=== PATIENT | male | born 1935 | race Caucasian/White ===

== ENCOUNTER 2023-02-26 08:12 | Emergency (ER) | payer OTHER ==
[~2023-02-26] VITALS: Ht 165.1 cm; Wt 88.9 kg
[~2023-02-26 08:12] MED LIST: FURO20 PO; Flonase 0.05% N16 GM; Furosemide20 MG PO; GABA100; GLIP2.5ER PO; Glucophage1000 MG PO; Glucotrol5 MG PO; Klor-Con M1010 MEQ PO; LOSA25 PO; METF500C PO; METO25ER PO; Neurontin300 MG PO; POTCHL10ER PO; ROPI.25 PO; SIMV5; Simvastatin20 MG PO; TRAM50; TRAM50 PO; TRAZ50 PO; Vitamin B-121000 MCG; WARF3 PO; WARF6 PO; Zocor20 MG PO
[2023-02-26 09:44] VITALS: BP 149/67
[2023-02-26 09:51] LABS: BASOPHILS ABSOLUTE AUTO 0.04 K/mm3 (0.00-0.23); BASOPHILS PERCENT AUTO 1 % (0-2); EOSINOPHILS ABSOLUTE AUTO 0.06 K/mm3 (0.00-0.68); EOSINOPHILS PERCENT AUTO 1 % (0-6); IMMATURE GRAN ABSOLUTE AUTO 0.05 K/mm3 (0.00-0.10); IMMATURE GRAN PERCENT AUTO 1 % (0-1); LYMPHOCYTES ABSOLUTE AUTO 1.07 K/mm3 (0.84-5.20); LYMPHOCYTES PERCENT AUTO 15 % (21-46); MONOCYTES ABSOLUTE AUTO 0.44 K/mm3 (0.16-1.47); MONOCYTES PERCENT AUTO 6 % (4-13); Mean Corpuscular HGB 29.2 pg (26.0-34.0); Mean Corpuscular HGB Conc 32.4 g/dL (31.5-36.5); Mean Corpuscular Volume 90 fL (80-100); Mean Platelet Volume 11.4 fL (9.1-12.4); NEUTROPHILS ABSOLUTE AUTO 5.61 K/mm3 (1.96-9.15); NEUTROPHILS PERCENT AUTO 77 % (41-73); Platelet Count 156 K/mm3 (150-400); RDW Standard Deviation 49.7 fL (35.1-46.3); Red Blood Cell Count 4.11 M/mm3 (4.30-5.90); White Blood Cell Count 7.27 K/mm3 (4.00-11.30)
[2023-02-26 10:05] LABS: International Normalized Ratio 2.21; Prothrombin Time Results 22.2 Sec (9.7-11.5)
[2023-02-26 10:14] LABS: Alanine Aminotransfer (ALT/SGP 34 U/L (12-78); Albumin, Blood 3.6 g/dL (3.4-5.0); Albumin/Globulin Ratio 1.1 (0.8-1.8); Alk Phos 77 U/L (50-136); Anion Gap 6 mmol/L (6-16); Aspartate Aminotrans (AST/SGOT 25 U/L (12-37); Bilirubin, Total 0.9 mg/dL (0.1-1.0); Blood Urea Nitrogen 17 mg/dL (8-24); Bun/Creatinine Ratio 12.9 (12.0-20.0); CHOL/HDL RATIO 2.5; CO2, Blood 23 mmol/L (21-32); Chloride, Blood 111 mmol/L (98-108); Cholesterol 135 mg/dL (50-200); Creatinine, Blood 1.32 mg/dL (0.60-1.20); Globulin, Blood 3.3 g/dL (2.2-4.0); Glomerular Filtration Rate 53 (60-); Glucose, Blood 120 mg/dL (70-99); HDL Cholesterol 55 mg/dL (>39); LDL/HDL RATIO 1.2; Low Density Lipoprotein Chol 65 mg/dL (0-110); Potassium, Blood 4.6 mmol/L (3.5-5.5); Sodium, Blood 140 mmol/L (136-145); Total Protein, Blood 6.9 g/dL (6.4-8.2); Triglycerides 76 mg/dL (30-160); Very Low Density Lipoprot Chol 15 mg/dL (6-32)
[2023-02-26] MEDS ORDERED: FURO40 PO (12:43)
[2023-02-26] MEDS ORDERED: LACT10SY PO (12:43)
[2023-02-26 13:25] LABS: Bun/Creatinine Ratio 11.9 (12.0-20.0); Calcium, Blood 9.2 mg/dL (8.5-10.1); Creatinine, Blood 1.34 mg/dL (0.60-1.20); Potassium, Blood 4.5 mmol/L (3.5-5.5)
== END 2023-02-26 12:59 | disposition home or self-care (01) ==
LOC: ER 08:12
PROVIDERS: Family Medicine
DX: I50.9 Heart failure, unspecified (principal); K59.00 Constipation, unspecified; I48.91 Unspecified atrial fibrillation; I25.10 Atherosclerotic heart disease of native coronary artery without angina pectoris; G47.33 Obstructive sleep apnea (adult) (pediatric); E11.9 Type 2 diabetes mellitus without complications; Z79.01 Long term (current) use of anticoagulants; Z79.84 Long term (current) use of oral hypoglycemic drugs; Z79.51 Long term (current) use of inhaled steroids; Z79.899 Other long term (current) drug therapy; Z95.1 Presence of aortocoronary bypass graft
CPT/HCPCS: 71046; 74177; 80048; 80053; 80061; 83880; 84484; 85025; 85610; 93005; 93010; 96374; 99284-25; A9270; J1940; Q9967

== ENCOUNTER 2023-03-10 10:15 | Emergency (ER) | payer OTHER ==
[~2023-03-10] VITALS: Ht 165.1 cm; Wt 90.7 kg
[~2023-03-10 10:15] MED LIST changes: +FURO40 PO; +LACT10SY PO
[2023-03-10 10:46] LABS: BASOPHILS ABSOLUTE AUTO 0.04 K/mm3 (0.00-0.23); BASOPHILS PERCENT AUTO 1 % (0-2); EOSINOPHILS ABSOLUTE AUTO 0.08 K/mm3 (0.00-0.68); EOSINOPHILS PERCENT AUTO 1 % (0-6); Hematocrit 38.7 % (37.0-53.0); Hemoglobin 12.4 g/dL (13.5-17.5); IMMATURE GRAN ABSOLUTE AUTO 0.04 K/mm3 (0.00-0.10); IMMATURE GRAN PERCENT AUTO 1 % (0-1); LYMPHOCYTES ABSOLUTE AUTO 1.39 K/mm3 (0.84-5.20); LYMPHOCYTES PERCENT AUTO 18 % (21-46); MONOCYTES ABSOLUTE AUTO 0.48 K/mm3 (0.16-1.47); MONOCYTES PERCENT AUTO 6 % (4-13); Mean Corpuscular HGB 28.6 pg (26.0-34.0); Mean Corpuscular Volume 89 fL (80-100); Mean Platelet Volume 11.3 fL (9.1-12.4); NEUTROPHILS ABSOLUTE AUTO 5.79 K/mm3 (1.96-9.15); NEUTROPHILS PERCENT AUTO 74 % (41-73); Platelet Count 151 K/mm3 (150-400); RDW Coefficient Variation 15.5 % (11.7-14.2); RDW Standard Deviation 51.2 fL (35.1-46.3); Red Blood Cell Count 4.33 M/mm3 (4.30-5.90); White Blood Cell Count 7.82 K/mm3 (4.00-11.30)
[2023-03-10 11:07] LABS: Albumin, Blood 3.9 g/dL (3.4-5.0); Albumin/Globulin Ratio 1.1 (0.8-1.8); Bun/Creatinine Ratio 19.7 (12.0-20.0); Calcium, Blood 9.2 mg/dL (8.5-10.1); Creatinine, Blood 1.37 mg/dL (0.60-1.20); Globulin, Blood 3.6 g/dL (2.2-4.0); Potassium, Blood 4.1 mmol/L (3.5-5.5); Total Protein, Blood 7.5 g/dL (6.4-8.2)
[2023-03-10 11:18] LABS: International Normalized Ratio 1.19; Prothrombin Time Results 12.4 Sec (9.7-11.5)
[2023-03-10 12:30] VITALS: BP 137/76
[2023-03-10] MEDS ORDERED: Dulcolax5 MG PO (12:37)
[2023-03-10] MEDS ORDERED: LEVO-T50 MC1 PO (12:37)
== END 2023-03-10 12:53 | disposition home or self-care (01) ==
LOC: ER 10:15
PROVIDERS: Physician Assistant
DX: K59.00 Constipation, unspecified (principal); E03.9 Hypothyroidism, unspecified; R94.6 Abnormal results of thyroid function studies; I50.9 Heart failure, unspecified; E11.9 Type 2 diabetes mellitus without complications; G47.30 Sleep apnea, unspecified; Z95.2 Presence of prosthetic heart valve; Z79.84 Long term (current) use of oral hypoglycemic drugs; Z79.01 Long term (current) use of anticoagulants; Z79.51 Long term (current) use of inhaled steroids; Z79.899 Other long term (current) drug therapy
CPT/HCPCS: 71046; 74019; 80053; 83690; 83880; 84443; 84484; 85025; 85610; 93005; 93010; 99284-25; A9270

== ENCOUNTER 2023-04-08 23:07 | Inpatient (IN) | payer OTHER ==
[~2023-04-08] VITALS: Ht 165.1 cm; Wt 94.3 kg
[~2023-04-08 23:07] MED LIST changes: +Dulcolax5 MG PO; +GLUCOPHAGE1000 M1 PO; -Glucophage1000 MG PO; +LEVO-T50 MC1 PO; -ROPI.25 PO; +ROPI1 PO; +WARF1 PO; -WARF3 PO
[2023-04-08 23:28] LABS: BASOPHILS ABSOLUTE AUTO 0.03 K/mm3 (0.00-0.23); BASOPHILS PERCENT AUTO 0 % (0-2); EOSINOPHILS ABSOLUTE AUTO 0.07 K/mm3 (0.00-0.68); EOSINOPHILS PERCENT AUTO 1 % (0-6); Hematocrit 37.7 % (37.0-53.0); IMMATURE GRAN ABSOLUTE AUTO 0.05 K/mm3 (0.00-0.10); IMMATURE GRAN PERCENT AUTO 1 % (0-1); LYMPHOCYTES ABSOLUTE AUTO 1.08 K/mm3 (0.84-5.20); LYMPHOCYTES PERCENT AUTO 16 % (21-46); MONOCYTES ABSOLUTE AUTO 0.62 K/mm3 (0.16-1.47); MONOCYTES PERCENT AUTO 9 % (4-13); Mean Corpuscular HGB Conc 31.8 g/dL (31.5-36.5); Mean Corpuscular Volume 88 fL (80-100); Mean Platelet Volume 11.2 fL (9.1-12.4); NEUTROPHILS ABSOLUTE AUTO 4.91 K/mm3 (1.96-9.15); NEUTROPHILS PERCENT AUTO 73 % (41-73); Platelet Count 155 K/mm3 (150-400); RDW Coefficient Variation 16.7 % (11.7-14.2); RDW Standard Deviation 53.5 fL (35.1-46.3); Red Blood Cell Count 4.28 M/mm3 (4.30-5.90); White Blood Cell Count 6.76 K/mm3 (4.00-11.30)
[2023-04-08 23:35] LABS: Base Excess Venous 0.3 mmol/L; Bicarbonate Venous 24.4 mmol/L (24.0-30.0); PCO2 Venous 41.3 mmHg (38-42); pH Blood Venous 7.39 (7.34-7.37)
[2023-04-09 00:03] LABS: Albumin, Blood 3.7 g/dL (3.4-5.0); Bilirubin, Total 0.7 mg/dL (0.1-1.0); Bun/Creatinine Ratio 21.7 (12.0-20.0); Creatinine, Blood 1.61 mg/dL (0.60-1.20); Globulin, Blood 3.6 g/dL (2.2-4.0); Potassium, Blood 4.6 mmol/L (3.5-5.5); Total Protein, Blood 7.3 g/dL (6.4-8.2)
[2023-04-09 00:35] LABS: Influenza A, PCR NEGATIVE (NEGATIVE); Influenza B, PCR NEGATIVE (NEGATIVE); Resp Syncytial Virus, PCR NEGATIVE (NEGATIVE); SARS-Cov-2 (COVID-19) PCR, MMC NEGATIVE (NEGATIVE)
[2023-04-09 00:43] LABS: International Normalized Ratio 1.25
[2023-04-09 02:51] VITALS: BP 132/60
[2023-04-09 05:03] LABS: Hematocrit 34.4 % (37.0-53.0)
[2023-04-09 05:40] LABS: Thyroid Stimulating Hormone 3.31 uIU/mL (0.360-4.800)
[2023-04-09 05:41] LABS: Bun/Creatinine Ratio 20.9 (12.0-20.0); Calcium, Blood 8.6 mg/dL (8.5-10.1); Creatinine, Blood 1.63 mg/dL (0.60-1.20); Potassium, Blood 3.8 mmol/L (3.5-5.5)
--- NOTE | 2023-04-09 07:10 | NUR ---
PT ARRIVED A/O AND CABRERA STATES HE IS FINE BUT OBVIOUSLY HAVING A HARD TIME BREATHING. LASIX GIVEN IN ER. ADMISSION DONE, O2 MONITOR ATTACHED PT O2 HAS SIGNIFICANT FLUCUATION BUT VERY EASILY REBOUNDS TO WNL. NO C/O PAIN NO DISTRESS. SITTING UP DRINKING COFFEE NOW.
[2023-04-09 07:38] VITALS: BP 95/63
[2023-04-09 14:29] LABS: International Normalized Ratio 1.28; Prothrombin Time Results 13.3 Sec (9.7-11.5)
[2023-04-09 15:32] VITALS: BP 117/75
--- NOTE | 2023-04-09 18:00 | NUR ---
SHIFT SUMMARY PATIENT ALERT AND INTERACTIVE. PATIENT STATING BREATHING MUCH BETTER THIS EVENING. HOME MEDICATION LIST UPDATED AND CORRECTED. MULTIPLE CHANGES MADE. PATIENT INDEPENDENT IN THE ROOM. LOWER LEG EDEMA NOTED. GABINO HOSE APPLIED TO LOWER EXTREMETIES. EDUCATION PROVIDED TO PATIENT AND FAMILY RELATED TO CARDIAC DIET, FLUID RETENTION, AND MEDICATIONS. REINFORCED WITH PATIENT THE IMPORTANCE OF WEARING CPAP WHEN SLEEPING. REPORTED FROM FAMILY PATIENT DOES NOT READ OR WRITE. DOES THE COOKING AND SON PREPARES MEDS IN A MEDIPLANNER. PATIENT DOES NOT ALWAYS TAKE MEDICATIONS FROM MEDIPLANNER BECAUSE OF FORGETFULNESS.
[2023-04-09] MEDS ORDERED: VITAMIN D325 MC3 PO (18:30)
[2023-04-09] MEDS ORDERED: Lisinopril2.5 MG PO (18:32)
[2023-04-09] MEDS ORDERED: FARXIGA5 MG PO (18:33)
[2023-04-09] MEDS ORDERED: ALDACTONE25 MG PO (18:33)
[2023-04-09 20:39] VITALS: BP 139/63
[2023-04-10 02:26] VITALS: BP 128/71
[2023-04-10 05:44] LABS: BASOPHILS ABSOLUTE AUTO 0.03 K/mm3 (0.00-0.23); BASOPHILS PERCENT AUTO 0 % (0-2); EOSINOPHILS ABSOLUTE AUTO 0.07 K/mm3 (0.00-0.68); EOSINOPHILS PERCENT AUTO 1 % (0-6); Hematocrit 36.2 % (37.0-53.0); Hemoglobin 11.8 g/dL (13.5-17.5); IMMATURE GRAN ABSOLUTE AUTO 0.05 K/mm3 (0.00-0.10); IMMATURE GRAN PERCENT AUTO 1 % (0-1); LYMPHOCYTES ABSOLUTE AUTO 1.18 K/mm3 (0.84-5.20); LYMPHOCYTES PERCENT AUTO 17 % (21-46); MONOCYTES ABSOLUTE AUTO 0.55 K/mm3 (0.16-1.47); MONOCYTES PERCENT AUTO 8 % (4-13); Mean Corpuscular HGB 27.8 pg (26.0-34.0); Mean Corpuscular HGB Conc 32.6 g/dL (31.5-36.5); Mean Corpuscular Volume 85 fL (80-100); Mean Platelet Volume 11.4 fL (9.1-12.4); NEUTROPHILS ABSOLUTE AUTO 5.23 K/mm3 (1.96-9.15); NEUTROPHILS PERCENT AUTO 74 % (41-73); Platelet Count 144 K/mm3 (150-400); RDW Coefficient Variation 16.2 % (11.7-14.2); RDW Standard Deviation 50.3 fL (35.1-46.3); Red Blood Cell Count 4.25 M/mm3 (4.30-5.90); White Blood Cell Count 7.11 K/mm3 (4.00-11.30)
[2023-04-10 05:57] LABS: International Normalized Ratio 1.26; Prothrombin Time Results 13.1 Sec (9.7-11.5)
[2023-04-10 05:58] LABS: Albumin, Blood 3.5 g/dL (3.4-5.0); Anion Gap 5 mmol/L (6-16); Blood Urea Nitrogen 34 mg/dL (8-24); Bun/Creatinine Ratio 21.9 (12.0-20.0); CO2, Blood 28 mmol/L (21-32); Calcium, Blood 8.9 mg/dL (8.5-10.1); Chloride, Blood 106 mmol/L (98-108); Creatinine, Blood 1.55 mg/dL (0.60-1.20); Glomerular Filtration Rate 43 (60-); Glucose, Blood 153 mg/dL (70-99); Magnesium, Blood 2.3 mg/dL (1.6-2.4); Phosphorus, Blood 3.4 mg/dL (2.5-4.9); Potassium, Blood 3.9 mmol/L (3.5-5.5); Sodium, Blood 139 mmol/L (136-145)
--- NOTE | 2023-04-10 06:37 | NUR ---
report received. pt did very well this evening o2 maintained and pt had no distress. only issue is pt had trouble sleeping so was restless in room. pt now resting in chair watching tv. cont monitoring
[2023-04-10 08:08] VITALS: BP 125/74
[2023-04-10 14:50] VITALS: BP 103/71
--- NOTE | 2023-04-10 17:48 | NUR ---
SHIFT SUMMARY PT A&OX4 AND PLEASANT. INDEPENDENT IN ROOM. CONTINUING TO DIURES. NO C/O PAIN OR FEELING SOB. BILATERAL VENOUS DUPLEX IN AFTERNOON AND NEGATIVE FOR DVT's. VSS. SON AT BEDSIDE DURING DINNER. VSS. BED IN LOWEST POSITION AND CALL LIGHT IN REACH.
[2023-04-10 20:49] VITALS: BP 150/59
[2023-04-10] MEDS ORDERED: PRAMIPEXOLE D0.25 M1 PO (22:27)
[2023-04-10] MEDS ORDERED: KLOR-CON 1010 ME9 PO (22:29)
[2023-04-10] MEDS ORDERED: NOVOLOG FL100 UNIT/3 SC (22:30)
[2023-04-10] MEDS ORDERED: SYNTHROID25 M12 PO (22:33)
[2023-04-10] MEDS ORDERED: SEMGLEE (Y100 UNIT/2 SC (22:35)
[2023-04-11 03:38] VITALS: BP 117/74
--- NOTE | 2023-04-11 06:33 | NUR ---
SHIFT SUMMARY PATIENT ALERT AND ORIENTED X 3-4, SOME FORGETFULNESS AND CONFUSION NOTED. MEDICATED PER EMAR FOR SLEEP AND PAIN IN HIS LEGS. PATIENT DID NOT GET MUCH SLEEP LAST NIGHT. ENDED UP PRESSING THE STAFF EMERGENCY BUTTON TWICE DESPITE REORIENTING HIM TO THE CALL LIGHT. THIS MORNING HE HAS GOTTEN DRESSED AND PACKED UP HIS CPAP WITH THE INTENT OF GOING HOME. PATEINT PLEASANT AND COOPORATIVE AND AGREEABLE TO WAIT FOR THE DOCTOR TO SEE HIM. VITAL SIGNS STABLE. WILL CONTINUE TO MONITOR. CALL LIGHT WITHIN REACH.
[2023-04-11 06:41] LABS: International Normalized Ratio 1.31; Prothrombin Time Results 13.5 Sec (9.7-11.5)
[2023-04-11 06:51] LABS: Albumin, Blood 3.5 g/dL (3.4-5.0); Anion Gap 6 mmol/L (6-16); Blood Urea Nitrogen 41 mg/dL (8-24); CO2, Blood 27 mmol/L (21-32); Calcium, Blood 9.3 mg/dL (8.5-10.1); Chloride, Blood 104 mmol/L (98-108); Creatinine, Blood 1.64 mg/dL (0.60-1.20); Glomerular Filtration Rate 40 (60-); Glucose, Blood 170 mg/dL (70-99); Phosphorus, Blood 3.6 mg/dL (2.5-4.9); Sodium, Blood 137 mmol/L (136-145)
[2023-04-11 08:16] VITALS: BP 123/72
[2023-04-11 14:53] VITALS: BP 106/67
--- NOTE | 2023-04-11 18:51 | NUR ---
SHIFT SUMMARY PT A&OX4 AND PLEASANT. PT WAS DRESSED IN PERSONAL CLOTHING AT START OF SHIFT IN ANTICIPATION OF GOING HOME. PT IS CONTINUING TO GET DIURESED PER EMAR WITH LITTLE IMPROVEMENT. PT PLACED ON 1,500ML FLUID RESTRICTION. PT NEED EDUCATION ON FLUID RESTRICTION D/T PT STATING SEVERAL TIMES THAT HE NEEDED TO DRINK MORE WATER. REMINDER ON PT'S BOARD AND PT HAS BEEN BETTER ABOUT FLUID INTAKE. PT WAS BLADDER SCANED POST VOID AND 66ML REMAINED IN BLADDER. PT INDEPENDENT IN ROOM. VSS. FAMILY AT BEDSIDE IN EVENING. BED IN LOWEST POSITION AND CALL LIGHT IN REACH.
[2023-04-11 19:30] VITALS: BP 112/58
--- NOTE | 2023-04-11 23:24 | NUR ---
2033 PT SITTING IN CHAIR AT BEDSIDE, DENIES ANY DISCOMFORT AT THIS TIME. BS WAS 230. NO OTHER APPARENT SIGNS OF DISTRESS. CALL LIGHT IS IN REACH.
--- NOTE | 2023-04-11 23:25 | NUR ---
PT LYING IN BED, EYES CLOSED, APPEARS TO BE RESTING. BREATHING IS EVEN, UNLABORED. NO APPARENT SIGNS OF DISTRESS. CALL LIGHT IS IN REACH.
--- NOTE | 2023-04-12 01:43 | NUR ---
0000 PT LYING IN BED, EYES CLOSED, APPEARS TO BE RESTING. BREATHING IS EVEN, UNLABORED. NO APPARENT SIGNS OF DISTRESS. CALL LIGHT IS IN REACH.
--- NOTE | 2023-04-12 01:43 | NUR ---
PT SITTING IN BEDSIDE RECLINER. REPORTS INSOMNIA. REQUESTED AND RECIEVED DECAFF TEA. NO OTHER APPARENT SIGNS OF DISTRESS. CALL LIGHT IS IN REACH.
[2023-04-12 04:15] VITALS: BP 116/72
[2023-04-12 04:49] LABS: BASOPHILS ABSOLUTE AUTO 0.02 K/mm3 (0.00-0.23); BASOPHILS PERCENT AUTO 0 % (0-2); EOSINOPHILS ABSOLUTE AUTO 0.09 K/mm3 (0.00-0.68); EOSINOPHILS PERCENT AUTO 2 % (0-6); Hematocrit 35.1 % (37.0-53.0); Hemoglobin 11.8 g/dL (13.5-17.5); IMMATURE GRAN ABSOLUTE AUTO 0.02 K/mm3 (0.00-0.10); IMMATURE GRAN PERCENT AUTO 0 % (0-1); LYMPHOCYTES ABSOLUTE AUTO 1.33 K/mm3 (0.84-5.20); LYMPHOCYTES PERCENT AUTO 23 % (21-46); MONOCYTES ABSOLUTE AUTO 0.57 K/mm3 (0.16-1.47); MONOCYTES PERCENT AUTO 10 % (4-13); Mean Corpuscular HGB 28.3 pg (26.0-34.0); Mean Corpuscular HGB Conc 33.6 g/dL (31.5-36.5); Mean Corpuscular Volume 84 fL (80-100); Mean Platelet Volume 11.7 fL (9.1-12.4); NEUTROPHILS ABSOLUTE AUTO 3.71 K/mm3 (1.96-9.15); NEUTROPHILS PERCENT AUTO 65 % (41-73); Platelet Count 125 K/mm3 (150-400); RDW Standard Deviation 49.1 fL (35.1-46.3); Red Blood Cell Count 4.17 M/mm3 (4.30-5.90); White Blood Cell Count 5.74 K/mm3 (4.00-11.30)
[2023-04-12 05:01] LABS: International Normalized Ratio 1.36
[2023-04-12 05:05] LABS: Albumin, Blood 3.6 g/dL (3.4-5.0); Anion Gap 6 mmol/L (6-16); Blood Urea Nitrogen 43 mg/dL (8-24); Bun/Creatinine Ratio 25.3 (12.0-20.0); CO2, Blood 28 mmol/L (21-32); Chloride, Blood 104 mmol/L (98-108); Glomerular Filtration Rate 39 (60-); Glucose, Blood 157 mg/dL (70-99); Phosphorus, Blood 3.8 mg/dL (2.5-4.9); Potassium, Blood 3.6 mmol/L (3.5-5.5); Sodium, Blood 138 mmol/L (136-145)
--- NOTE | 2023-04-12 05:08 | NUR ---
0400 PT LYING IN BED, AWAKE, DENIES NEED FOR ANYTHING AT THIS TIME. NO APPARENT SIGNS OF DISTRESS. CALL LIGHT IS IN REACH.
--- NOTE | 2023-04-12 05:09 | NUR ---
PT IS AAO X 4, DENIED ANY DISCOMFORT FOR THIS SHIFT OTHER THAN INSOMNIA, PT GOT TRAZADONE AND REQUIP AT HS. ON RA. BS WAS 230. LE'S EDEMA/REDNESS/SCABBING.
--- NOTE | 2023-04-12 05:35 | NUR ---
PT IS AWAKE, AMBULATING IN ROOM. DENIES NEED FOR ANYTHING AT THIS TIME. NO APPARENT SIGNS OF DISTRESS. CALL LIGHT IS IN REACH. NO OTHER CHANGES THIS SHIFT.
[2023-04-12 07:02] VITALS: BP 151/75
[2023-04-12] MEDS ORDERED: GABA300 PO (12:04)
[2023-04-12] MEDS ORDERED: BUME2 PO (12:05)
[2023-04-12] MEDS ORDERED: LACT10SY PO (12:05)
--- NOTE | 2023-04-12 13:16 | NUR ---
DISCHARGE SUMMARY: PT DISCHARGED HOME TODAY WITH SISTER. PT AND SISTER EDUCATED ON DISCHARGE INSTRUCTIONS AND MEDICATIONS. PT/SISTER VU. ASSISTED PT WITH PACKING UP BELONGINGS. PT ESCORTED TO POV VIA WC.
== END 2023-04-12 12:17 | disposition home or self-care (01) | DRG 291 ==
LOC: ER 23:07 → MEDS 04-09 01:32
PROVIDERS: Family Medicine; Student in an Organized Health Care Education/Training Program; ADMIT Internal Medicine
PROC: 5A09357 Assistance with Respiratory Ventilation, Less than 24 Consecutive Hours, Continuous Positive Airway Pressure (ICD-10-PCS; principal; 2023-04-09)
DX: I13.0 Hypertensive heart and chronic kidney disease with heart failure and stage 1 through stage 4 chronic kidney disease, or unspecified chronic kidney disease (principal); I50.23 Acute on chronic systolic (congestive) heart failure; N17.9 Acute kidney failure, unspecified; E87.3 Alkalosis; J44.9 Chronic obstructive pulmonary disease, unspecified; I48.91 Unspecified atrial fibrillation; E11.22 Type 2 diabetes mellitus with diabetic chronic kidney disease; Z66 Do not resuscitate; D63.1 Anemia in chronic kidney disease; I27.20 Pulmonary hypertension, unspecified; I07.1 Rheumatic tricuspid insufficiency; G47.33 Obstructive sleep apnea (adult) (pediatric); R00.1 Bradycardia, unspecified; I25.10 Atherosclerotic heart disease of native coronary artery without angina pectoris; N18.9 Chronic kidney disease, unspecified; G25.81 Restless legs syndrome; I25.2 Old myocardial infarction; E03.9 Hypothyroidism, unspecified; Z79.84 Long term (current) use of oral hypoglycemic drugs; Z79.899 Other long term (current) drug therapy; Z79.890 Hormone replacement therapy; Z79.01 Long term (current) use of anticoagulants; Z98.890 Other specified postprocedural states; Z95.1 Presence of aortocoronary bypass graft; Z90.49 Acquired absence of other specified parts of digestive tract; Z95.2 Presence of prosthetic heart valve; Z11.52 Encounter for screening for COVID-19
CPT/HCPCS: 0241U; 36415; 71046; 80048; 80053; 80069; 82803; 82947; 83735; 83880; 84443; 84484; 85014; 85018; 85025; 85610; 93005; 93010; 93970; 94660; 94762; 96374; 99285-25; A9270; J1650; J1940